=== PATIENT | female | born 1950 | race Caucasian/White ===

== ENCOUNTER 2020-08-30 06:23 | Day surgery (SDC) | payer OTHER ==
[2020-08-26 09:42] LABS: Absolute Lymphocytes (CBC) 1.2 K/uL (0.7-4.9); Basophils % 0.3 % (0-1.3); Lymphocytes % 23.8 % (15.3-44.8); MPV 7.8 fL (7.6-11.3); RBC Red Blood Cell Count 3.82 M/uL (3.86-4.86)
[2020-08-26 09:58] LABS: Potassium 3.9 mmol/L (3.5-5.1)
--- NOTE | 2020-08-26 10:02 | RAD REPORT ---
EXAM DESCRIPTION: RAD - Chest Pa And Lat (2 Views) - 08/26/2020 9:45 am CLINICAL HISTORY: PRE OP, pending knee surgery COMPARISON: None TECHNIQUE: Frontal and lateral views of the chest were obtained. FINDINGS: The lungs are clear. Heart size is normal and central vasculature is within normal limit s. No pleural effusion or pneumothorax seen. No acute bony finding noted. No aortic abnormality. IMPRESSION: No acute cardiopulmonary process.
--- OUTSIDE RECORDS SUMMARY | 2020-08-30 06:27 | XMS REPORT | Continuity of Care Document ---
:1950 Author Organization [facility] t Address [address] [place] [address] Dr. [address] [place] [address] Care Team Providers Name Role Phone Unavailable Unavailable Unavailable Problems This patient has no known problems. Allergies, Adverse Reactions, Alerts This patient has no known allergies or adverse reactions. Medications Ordered Filled Start Stop Current Ordering Indication Dosage Frequency Signature Comments Components Source Medication Medication Date Date Medication? Clinician (SIG) Name Name Amlodipine Amlodipine Yes Ariadna [address] [facility] Besylate Besylate [place] [facility] Donepezil Donepezil Yes Ariadna [address] [facility] HCl HCl [place] at bedtime [facility] Metoprolol Metoprolol Yes Ariadna [address] [facility] Succinate Succinate [place] [facility] Omeprazole Omeprazole Yes Ariadna [address] [facility] [place] [facility] Losartan Losartan Yes Ariadna [address] Potassium-H Pot[facility]-H [place] [facility] Nabumetone Nabumetone Yes Ariadna [address] [facility] [place] [facility] Sertraline Sertraline Yes Ariadna TAKE [address] [facility] HCl HCl [place] TABLET BY [facility] M[facility]TH [facility] EVERY DAY l [facility] Lovastatin Lovastatin Yes Ariadna [address] [facility] [place] with a [facility] meal [facility] Duloxetine Duloxetine Yes Ariadna [address] [facility] [address] HCl HCl [place] [facility] Immunizations Ordered Filled Immunization Date Status Comments Sourc e Immunization Name Name FLUZONE HIGH DOSE FLUZONE HIGH DOSE 2020-04-[address] [facility] - OVER 65 OVER 65 00:00:00 [facility] Pneumovax Pneumovax 2019-10-[address] [facility] - 00:00:00 [facility] FLUZONE HIGH DOSE FLUZONE HIGH DOSE 2018-10-[address] [facility] - OVER 65 OVER 65 00:00:00 [facility] Prevnar 13 Prevnar 13 2018-10-24 Com[facility] - -Pneumonia Vaccine -Pneumonia Vaccine 00:00:00 [facility] Procedures This patient has no known procedures. Encounters Start End Encounter Admission Attending Care Care Encounter Source Date/Time Date/Time Type Type Clinicians Facility Department ID 2020-08-16 2020-08-16 Outpatient [facility] [id number] [facility] 2020-08-15 2020-08-15 [facility] [id number] [facility] 2020-08-15 2020-08-15 Out[facility] [id number] [facility] 2020-08-14 2020-08-14 Outpatient [facility] [id number] [facility] 2020-07-23 2020-07-23 Outpatient [facility] [id number] [facility] 2020-07-16 2020-07-16 Outpatient [facility] [id number] [facility] 2020-07-08 2020-07-08 Outpatient [facility] [id number] [facility] 2020-04-25 2020-04-25 [facility] [id number] [facility] 10[facility]20:00 10:20:00 [facility] 2020-03-26 2020-03-26 [facility] [id number] [facility] 10[facility]00[facility]00 10:00:00 [facility] Clin[facility] 2020-02-15 2020-02-15 [facility] [id number] [address] 10[facility]00 10[facility]00:[facility] Out[facility] Clin[facility] 2020-02-14 2020-02-14 [facility] [id number] [address] 10:15:00 10:15:00 [facility] Outpat[facility] ent Clinics 2020-02-14 2020-02-14 [facility] [id number] [address] 10:14:00 10:14:00 [facility] Outpat[facility] ent Clinics 2020-01-25 2020-01-25 [facility] [id number] [address] 10[facility]15[facility]00 10:15[facility]00 [facility] 2019-12-06 2019-12-06 [facility] [id number] [facility] 13[facility]12:00 13:12:00 [facility] 2019-11-27 2019-11-27 [facility] [id number] [address] 16:23:00 16:23:00 [facility]pat[facility] Clinics 2019-10-24 2019-10-24 [facility] [id number] [address] 09:40:00 09:40:00 [facility] Outpat[facility] ent Clinics 2019-09-08 2019-09-08 [facility] [id number] [facility] 08[facility]00:00 08:00:00 [facility] 2019-09-04 2019-09-04 [facility] [id number] [address] 15:20:00 15:20:00 [facility] 2019-08-28 2019-08-28 [facility] [id number] [address] 11:00:00 11:00:00 [facility] Clin[facility] 2019-06-15 2019-06-15 [facility] [id number] [address] 10:00:00 10:00:00 [facility] 2019-05-09 2019-05-09 [facility] [id number] 10:30:00 10:30:00 [facility] 2019-04-27 2019-04-27 [facility] [id number] 09:10:00 09:10:00 [facility] ent Clinics 2019-04-25 2019-04-25 [facility] [id number] [address] 09:40:00 09:40:00 [facility] ent Clinics 2019-03-20 2019-03-20 [facility] [id number] 09[facility]00:00 09:00:00 [facility] ent Clinics 2019-02-06 2019-02-06 [facility] [id number] 15:15:00 15:15:00 [facility] ent Clinics 2018-11-04 2018-11-04 [facility] [id number] 14[facility]04:00 14:04:00 [facility] ent Clinics 2018-10-24 2018-10-24 [facility] [id number] [address] 09:00:00 09:00:00 [facility] Clinics 2018-04-25 2018-04-25 [facility] [id number] [address] 09:00:00 09:00:00 [facility] 2018-03-30 2018-03-30 [facility] [id number] [address] 10:30:00 10:30:00 [facility] Outpat[facility] ent Clinics 2018-03-15 2018-03-15 [facility] [id number] 10:00:00 10:00:00 [facility] Outpat[facility] ent Clinics 2018-02-11 2018-02-11 [facility] [id number] 10:30:00 10:30:00 [facility] Results This patient has no known results.
--- OUTSIDE RECORDS SUMMARY | 2020-08-30 06:28 | XMS REPORT ---
:1950 Author Organization [facility] Address [address] [facility] [address] [place] [address] Care Team Providers Name Role Phone Bairon Unavailable [phone] PROBLEMS Type Condition ICD9-CM [id number] Onset Condition SNOMED Code Notes Code Code Dates Status Problem Mild memory R41.3 Active 478357430 disturbance Problem Essential I10 Active 75266423 hypertension Problem Seasonal allergic J30.1 Active 21874695 rhinitis due to pollen Problem Hyperlipidemia E78.5 Active 85514484 Problem Gastric ulcer K25.9 Active 691860743 Problem Depression with F41.8 Active 506930521 anxiety Problem Arthritis M19.90 Active 8206803 ALLERGIES No Known Allergies ENCOUNTERS from 1950 to 2020-08-15 Encounter Location Date Provider Diagnosis [facility] [address] [address] IMMUNIZATIONS Vaccine Route Administration Date Status Hyalgan 20 mg Unknown Jul 16, 2020 Administered Hyalgan 20 mg Unknown Jul 23, 2020 Administered Bupivicaine [place] Unknown Sep 08, 2019 Administered Bupivicaine [place] Unknown January 25, 2020 Administered Pneumovax (PPSV23) IM Intramuscular October 24, 2019 Administered Betamethasone Sodium Phosphate Unknown May 09, 2019 A dministered Hyalgan 20 mg Unknown Jul 08, 2020 Administered Kenalog (Triamcinolone) Unknown May 09, 2019 Administ ered Bupivicaine [place] Unknown Jul 08, 2020 Administered Shingrix IM Intramuscular Apr 10, 2019 Administered Prevnar 13 -Pneumonia Vaccine IM Intramuscular October 24, 2018 A dministered FLUZONE HIGH DOSE OVER 65 IM Intramuscular Apr 25, 2020 Admin istered FLUZONE HIGH DOSE OVER 65 IM Intramuscular October 24, 2018 Admin istered LIDOCAINE HCL 10MG/ML Unknown May 09, 2019 Administer ed LIDOCAINE HCL 10MG/ML Unknown May 09, 2019 Administer ed Kenalog (Triamcinolone) Unknown Jul 08, 2020 Administ ered Kenalog (Triamcinolone) Unknown January 25, 2020 Administ ered Kenalog (Triamcinolone) Unknown Sep 08, 2019 Administ ered SOCIAL HISTORY Tobacco Use: Social History Observation Description Date Details (start date - stop date) Never Smoker Sex Assigned At : Social History Observation Description Sex Assigned At Unknown PHQ9 Question Answer Notes Little interest or pleasure in doing things Several days Feeling down, depressed, or hopeless Several days Trouble falling or staying asleep or sleeping too much More than half the days Feeling tired or having little energy Not at all Poor appetite or overeating Not at all Feeling bad about yourself, or that you are a failure, Sever al days or have let yourself or your family down Trouble concentrating on things, such as reading the More th an half the days newspaper or watching television Moving or speaking so slowly that other people could More th an half the days have noticed; or the opposite, being so fidgety or restless that you have been moving around a lot more than usual Total Score 9 Interpretation Mild Depression Thoughts that you would be better off or of Not at all hurting yourself in some way Alcohol Screen Question Answer Notes Did you have a drink containing alcohol in the past year? No Points 0 Interpretation Negative Tobacco Use/Smoking Question Answer Notes Are you a never smoker Additional Findings: Tobacco Non-User Current non-smoker REASON FOR REFERRAL No Information VITAL SIGNS No information MEDICATIONS Medication SIG (Take, Route, Notes Start Date End Date Status Frequency, Duration) Losartan Potassium-HCTZ 1 tablet Orally Once a Active 100-25 MG day for 90 Omeprazole 20 MG 1 capsule Orally Once a Active day for 90 Nabumetone 750 MG 1 tablet Orally Twice a Active day for 90 Amlodipine Besylate 5 MG 1 tablet Orally Once a Active day for 90 Duloxetine HCl 20 MG 1 capsule Orally Twice a Not-Taking day for 30 day(s) Sertraline HCl 100 MG TAKE 1 TABLET BY MOUTH Active EVERY DAY for 90 Donepezil HCl 5 MG 1 tablet at bedtime Not-Taking Orally Once a day for 30 Metoprolol Succinate ER 1 tablet Orally Once a Active 50 MG day for 90 Lovastatin 10 MG 1 tablet with a meal Active Orally Once a day for 90 Omeprazole Not-Taking PROCEDURES No Information RESULTS No Results REASON FOR VISIT Surgical Clearance MEDICAL (GENERAL) HISTORY Type Description Date Medical History Gastric ulcer Medical History Mild memory disturbance Medical History Hyperlipidemia Medical History Depression with anxiety Medical History Essential hypertension Medical History Arthritis Medical History Allergic rhinitis, unspecified seasonali ty, unspecified trigger Medical History Trigger ring finger of left hand Medical History Acute pain of left knee Medical History Pain, joint, hand, left Medical History Pain, joint, knee, left Medical History Trigger finger, left ring finger Medical History Rib deformity Surgical History TKR right 2011 Surgical History left ankle 2013 Surgical History crusted right wrist surgery 1995 Surgical History left wrist 2013 Surgical History left shoulder 2014 Surgical History back injections, nerve block 2016, 2017, 2018 Surgical History back ablation c4 & C5- Dr Resendiz 2019 Goals Section No Information Health Concerns No Information MEDICAL EQUIPMENT No Information MENTAL STATUS No Information FUNCTIONAL STATUS No Information ASSESSMENTS No Information PLAN OF TREATMENT Next Appt Details Provider Name:Ariadna Armstrong 2020-10-16 08 :15:00 AM, [address] [facility], [address], [place], [address], Provider Name:Ariadna Armstrong 2020-10-23 09 :40:00 AM, [address], [address], [place], [address], Insurance Providers Payer Name Payer Address Payer Insured Patient Coverage Cover age Phone Name Relationship to Start Date End Date Insured Cigna [address] [address] [phone] Brown self 2017 [facility] [id number] [employer] MEDICARE Attn Part B [id number] Derek Brown self 2016 [employer] Claims [phone] [facility] [address]
--- OUTSIDE RECORDS SUMMARY | 2020-08-30 06:28 | XMS REPORT ---
:1950 Author Organization [facility] Address [address], [facility] [address] [place] [address] Care Team Providers Name Role Phone Bairon Unavailable [phone] PROBLEMS Type Condition ICD9-CM [id number] Onset Condition SNOMED Code Notes Code Code Dates Status Problem Mild memory R41.3 Active 332606847 disturbance Problem Essential I10 Active 95280889 hypertension Problem Seasonal allergic J30.1 Active 81388533 rhinitis due to pollen Problem Hyperlipidemia E78.5 Active 32780587 Problem Gastric ulcer K25.9 Active 293582884 Problem Depression with F41.8 Active 874653933 anxiety Problem Arthritis M19.90 Active 5276359 ALLERGIES No Known Allergies ENCOUNTERS from 1950 to 2020-07-25 Encounter Location Date Provider Diagnosis [facility] [address] Jul, Boby Waddell Pain , joint, knee, left [facility] [address] M25.562 ; [place] [address] knee M17.12 and Other tear of medial meniscus of left knee as current injury, initial encounter S83.2 42A IMMUNIZATIONS Vaccine Route Administration Date Status Hyalgan 20 mg Unknown Jul 16, 2020 Administered Hyalgan 20 mg Unknown Jul 23, 2020 Administered Bupivicaine [place] Unknown Sep 08, 2019 Administered Bupivicaine [place] Unknown January 25, 2020 Administered Pneumovax (PPSV23) IM Intramuscular October 24, 2019 Administered Betamethasone Sodium Phosphate Unknown May 09, 2019 A dministered Hyalgan 20 mg Unknown Jul 08, 2020 Administered Kenalog (Triamcinolone) Unknown May 09, 2019 Administ ered Bupivicaine [place] Unknown Jul 08, 2020 Administered Shingrix IM [...] REASON FOR REFERRAL No Information VITAL SIGNS Height 61 in Jul, Weight 158 lbs Jul, Temperature 97.3 degrees Fahrenheit Jul, BMI 29.85 kg/m2 Jul, Blood pressure systolic 110 mm Hg Jul, Blood pressure diastolic 69 mm Hg Jul, MEDICATIONS Medication SIG (Take, Route, Notes Start Date End Date Status Frequency, Duration) Omeprazole 20 MG 1 capsule Orally Once a Active day for 90 Amlodipine Besylate 5 MG 1 tablet Orally Once a Active day for 90 Losartan Potassium-HCTZ 1 tablet Orally Once a Active 100-25 MG day for 90 Duloxetine HCl 20 MG 1 capsule Orally Twice a Not-Taking day for 30 day(s) Donepezil HCl 5 MG 1 tablet at bedtime Not-Taking Orally Once a day for 30 Lovastatin 10 MG 1 tablet with a meal Active Orally Once a day for 90 Sertraline HCl 100 MG TAKE 1 TABLET BY MOUTH Active EVERY DAY for 90 Nabumetone 750 MG 1 tablet Orally Twice a Active day for 90 Omeprazole Not-Taking Metoprolol Succinate ER 1 tablet Orally Once a Active 50 MG day for 90 PROCEDURES No Information RESULTS No Results REASON FOR VISIT LEFT KNEE #2 HYALGAN MEDICAL (GENERAL) HISTORY Type Description Date Medical [...] History Rib deformity Surgical History TKR right 2010 Surgical History left ankle 2013 Surgical History crusted right wrist surgery 1995 Surgical History left wrist 2013 Surgical History left shoulder 2014 Surgical History back injections, nerve block 2016, 2017, 2019 Surgical History back ablation c4 & C5- Dr Resendiz 2019 Goals Section No Information Health Concerns No Information MEDICAL EQUIPMENT No Information MENTAL STATUS No Information FUNCTIONAL STATUS No Information ASSESSMENTS Encounter Date Diagnosis Assessment Notes Treatment Notes Treatm ent Clinical Notes Jul, Pain, joint, knee, left (ICD-10 - M25.562) Jul, Primary osteoarthritis of left knee (ICD-10 - M17.12) Jul, Other tear of medial -reviewed MRI which meniscus of left demonstrated knee as current nondisplaced injury, initial degenerative encounter (ICD-10 - horizontal tear and S83.242A) knee osteoarthritis -continue with conservative treatment measures including corticosteroid injection -underwent her 2nd left knee hyalgan injection without complication -ice and rest the knee for 24 hour s -f/u in 1 week for her 3rd injection of the series Jul, Other -right knee feels better at this t amaury -will hold off on right knee xrays PLAN OF TREATMENT Treatment Notes Assessment Notes Clinical Notes Other tear of medial meniscus of -reviewed MRI which demonst rated left knee as current injury, nondisplaced degenerative horiz ontal initial encounter tear and knee osteoarthritis-continue with conservative treatment measures including corticosteroid injection-underwent her 2nd left knee hyalgan injection without complication-ice and rest the knee for 24 hours-f/u in 1 week for her 3rd injection of the series Next Appt Details 1 Week Reason: Provider Name:Ariadnalilia Armstrong, 2020-10-16 08 :15:00 AM, [address], [address], [place], [address], Provider Name:Ariadna Armstrong, 2020-10-23 09 :40:00 AM, [address], [address], [place], [address], Insurance Providers Payer Name Payer Address Payer Insured Patient Coverage Cover age Phone Name Relationship to Start Date End Date Insured MEDICARE Attn Part B [id number] Derek Brown self 2016 [employer] Claims [address] [facility] [address] Cign[employer] [address] [address] [phone] Derek Brown self 2017 [facility] [id number] [address] [employer]
--- OUTSIDE RECORDS SUMMARY | 2020-08-30 06:28 | XMS REPORT ---
:1950 Author Organization [facility] Address [address], [facility] [place] [address] Care Team Providers Name Role Phone Bairon Unavailable [phone] PROBLEMS Type Condition ICD9-CM [id number] Onset Condition SNOMED Code Notes Code Code Dates Status Problem Mild memory R41.3 Active 457024846 disturbance Problem Essential I10 Active 71001837 hypertension Problem Seasonal allergic J30.1 Active 32251348 rhinitis due to pollen Problem Hyperlipidemia E78.5 Active 27032758 Problem Gastric ulcer K25.9 Active 418690620 Problem Depression with F41.8 Active 179071699 anxiety Problem Arthritis M19.90 Active 6109599 ALLERGIES No Known Allergies ENCOUNTERS from 1950 to 2020-08-21 Encounter Location Date Provider Diagnosis [facility] [address] Aug, Boby white osteoarthritis [facility] [address] of left knee M17.12 ; [place], [place] Pain, joint, kn ee, left [address] M25.562 and Oth er tear of medial menis cus, current injury, left knee, subsequen t encounter S83.2 42D IMMUNIZATIONS Vaccine Route Administration Date Status Hyalgan 20 mg Unknown Jul 16, 2020 Administered Hyalgan 20 mg Unknown Jul 23, 2020 Administered Bupivicaine [place] Unknown Sep 08, 2019 Administered Bupivicaine [place] Unknown January 25, 2020 Administered Pneumovax (PPSV23) IM Intramuscular October 24, 2019 Administered Betamethasone Sodium Phosphate Unknown May 09, 2019 A dministered Hyalgan 20 mg Unknown Jul 08, 2020 Administered Kenalog (Triamcinolone) Unknown May 09, 2019 Administ luz Bupivicaine [place] Unknown Jul 08, 2020 Administered Shingrix IM [...] Kenalog (Triamcinolone) Unknown Jul 08, 2020 Administ erecollins Kenalog (Triamcinolone) Unknown January 25, 2020 Administ ered Kenalog (Triamcinolone) Unknown Sep 08, 2019 Administ luz SOCIAL HISTORY Tobacco Use: Social History Observation [...] No Information VITAL SIGNS Height 61 in Aug, Weight 158 lbs Aug, Temperature 97.3 degrees Fahrenheit Aug, BMI 29.85 kg/m2 Aug, Blood pressure systolic 122 mm Hg Aug, Blood pressure diastolic 78 mm Hg Aug, MEDICATIONS Medication SIG (Take, Route, Notes Start Date End Date Status Frequency, Duration) Donepezil HCl 5 MG 1 tablet at bedtime Not-Taking Orally Once a day for 30 Omeprazole 20 MG 1 capsule Orally Once a Active day for 90 Nabumetone 750 MG 1 tablet Orally Twice a Active day for 90 Duloxetine HCl 20 MG 1 capsule Orally Twice a Not-Taking day for 30 day(s) Metoprolol Succinate ER 1 tablet Orally Once a Active 50 MG day for 90 Omeprazole Not-Taking Lovastatin 10 MG 1 tablet with a meal Active Orally Once a day for 90 Losartan Potassium-HCTZ 1 tablet Orally Once a Active 100-25 MG day for 90 Sertraline HCl 100 MG TAKE 1 TABLET BY MOUTH Active EVERY DAY for 90 Amlodipine Besylate 5 MG 1 tablet Orally Once a Active day for 90 PROCEDURES No Information RESULTS No Results REASON FOR VISIT FU LT KNEE MEDICAL (GENERAL) HISTORY Type Description Date Medical [...] left wrist 2013 Surgical History left shoulder 2015 Surgical History back injections, nerve block 2016, 2017, 2019 Surgical History back ablation c4 & C5- Dr Resendiz 2019 Goals Section No Information Health Concerns No Information MEDICAL EQUIPMENT No Information MENTAL STATUS No Information FUNCTIONAL STATUS No Information ASSESSMENTS Encounter Date Diagnosis Assessment Notes Treatment Notes Treatm ent Clinical Notes Aug, Primary -reviewed MRI which osteoarthritis of demonstrated left knee (ICD-10 - nondisplaced M17.12) degenerative horizontal tear and knee osteoarthritis -patient has failed conservative treatment measur es -given continued pain, recommend left knee arthroscopic partial medial meniscectomy and all indidcated procedures -discussed with the patient risks and benefits associated with the procedure at length as well as postoperative rehabilitation and she expressed understanding -f/u 1 week pos top -discussed repeat injections in future if her pain did not completely resolve with the knee arthroscopy Aug, Pain, joint, knee, left (ICD-10 - M25.562) Aug, Other tear of medial -reviewed MRI which meniscus, current demonstrated injury, left knee, nondisplaced subsequent encounter degenerative (ICD-10 - S83.242D) horizontal tear and knee osteoarthritis -patient has failed conservative treatment measur es -given continued pain, recommend left knee arthroscopic partial medial meniscectomy and all indidcated procedures -discussed with the patient risks and benefits associated with the procedure at length as well as postoperative rehabilitation and she expressed understanding -f/u 1 week postop PLAN OF TREATMENT Medication Medication Name Sig Start Date Stop Date Metoprolol Succinate ER 50 MG 1 tablet Orally Once a day for 90 Sertraline HCl 100 MG TAKE 1 TABLET BY MOUTH EVERY DAY for 90 Treatment Notes Assessment Notes Clinical Notes Primary osteoarthritis of left knee -reviewed MRI which demo nstrated nondisplaced degenerative horizontal tear and knee osteoarthritis-patient has failed conservative treatment measures-given continued pain, recommend left knee arthroscopic partial medial meniscectomy and all indidcated procedures-discussed with the patient risks and benefits associated with the procedure at length as well as postoperative rehabilitation and she expressed understanding-f/u 1 week postop-discussed repeat injections in future if her pain did not completely resolve with the knee arthroscopy Other tear of medial meniscus, -reviewed MRI which demonstra shruthi current injury, left knee, nondisplaced degenerative subsequent encounter horizontal tear and knee osteoarthritis-patient has failed conservative treatment measures-given continued pain, recommend left knee arthroscopic partial medial meniscectomy and all indidcated procedures-discussed with the patient risks and benefits associated with the procedure at length as well as postoperative rehabilitation and she expressed understanding-f/u 1 week postop Next Appt Details f/u 1 week postop Reason: Provider Name:Boby Waddell, 2020-09-05 1 0:00:00 AM, [address], [address], [place], [address], Provider Name:Ariadna Armstrong, 2020-10-16 08 :15:00 AM, [address], [address], [place], [address], Provider Name:Ariadna Armstrong, 2020-10-23 09 :40:00 AM, [address], [address], [place], [address], Insurance Providers Payer Name Payer Address Payer Insured Patient Coverage Cover age Phone Name Relationship to Start Date End Date Insured MEDICARE Attn Part B [id number] KevinDerek self 2016 [employer] Claims [address] [facility] [address] Cigna [address] [address] [phone] Derek Brown self 2017 Supplement [facility] [id number] [address] Solution
--- OUTSIDE RECORDS SUMMARY | 2020-08-30 06:28 | XMS REPORT ---
:1950 Author Organization [facility] Address [address], [facility] 1 [place] [address] Care Team Providers Name Role Phone Bairon Unavailable [phone] PROBLEMS Type Condition ICD9-CM [id number] Onset Condition SNOMED Code Notes Code Code Dates Status Problem Mild memory R41.3 Active 032203168 disturbance Problem Essential I10 Active 25907344 hypertension Problem Seasonal allergic J30.1 Active 42182448 rhinitis due to pollen Problem Hyperlipidemia E78.5 Active 81142732 Problem Gastric ulcer K25.9 Active 844950206 Problem Depression with F41.8 Active 099677613 anxiety Problem Arthritis M19.90 Active 7968688 ALLERGIES No Known Allergies ENCOUNTERS from 1950 to 2020-07-09 Encounter Location Date Provider Diagnosis [facility] [address] Jun, 2020 Boby Waddell Pain , joint, knee, [facility] 1 [facility] M25.56 1 ; [place], [place], [place], [place] [address] M25.562 ; Prima ry osteoarthritis of left knee M17.12 and Other tear of medial meniscus of left knee as current injury, initial encounter S83.2 42A IMMUNIZATIONS Vaccine Route Administration Date Status Bupivicaine [place] Unknown Sep 08, 2019 Administered Bupivicaine [place] Unknown January 25, 2020 Administered Bupivicaine [place] Unknown Jul 08, 2020 Administered Shingrix IM Intramuscular Apr 10, 2019 Administered Pneumovax (PPSV23) IM Intramuscular October 24, 2019 Administered Betamethasone Sodium Phosphate Unknown May 09, 2019 A dministered Hyalgan 20 mg Unknown Jul 08, 2020 Administered Kenalog (Triamcinolone) Unknown May 09, 2019 Administ luz Prevnar 13 -Pneumonia Vaccine IM Intramuscular October 24, 2018 A dministered FLUZONE HIGH DOSE OVER 65 IM Intramuscular Apr 25, 2020 Admin istered FLUZONE HIGH DOSE OVER 65 IM Intramuscular October 24, 2018 Admin istered LIDOCAINE HCL 10MG/ML Unknown May 09, 2019 Administer ed LIDOCAINE HCL 10MG/ML Unknown May 09, 2019 Administer ed Kenalog (Triamcinolone) Unknown Jul 08, 2020 Administ luz Kenalog (Triamcinolone) Unknown January 25, 2020 Administ erecollins Kenalog (Triamcinolone) Unknown Sep 08, 2019 Administ [...] No Information VITAL SIGNS Height 61 in Jun, Weight 158.2 lbs Jun, Temperature 97.3 degrees Fahrenheit Jun, BMI 29.89 kg/m2 Jun, Blood pressure systolic 114 mm Hg Jun, Blood pressure diastolic 80 mm Hg Jun, MEDICATIONS Medication SIG (Take, Route, Notes Start Date End Date Status Frequency, Duration) Amlodipine Besylate 5 MG 1 tablet Orally Once a Active day for 90 Nabumetone 750 MG 1 tablet Orally Twice a Active day for 90 Duloxetine HCl 20 MG 1 capsule Orally Twice a Not-Taking day for 30 day(s) Omeprazole Not-Taking Lovastatin 10 MG 1 tablet with a meal Active Orally Once a day for 90 Donepezil HCl 5 MG 1 tablet at bedtime Not-Taking Orally Once a day for 30 Losartan Potassium-HCTZ 1 tablet Orally Once a Active 100-25 MG day for 90 Omeprazole 20 MG 1 capsule Orally Once a Active day for 90 Metoprolol Succinate ER 1 tablet Orally Once a Active 50 MG day for 90 Sertraline HCl 100 MG TAKE 1 TABLET BY MOUTH Active EVERY DAY for 90 PROCEDURES No Information RESULTS No Results REASON FOR VISIT F/U NEW INJURY: LT KNEE PAIN- XRAY MEDICAL (GENERAL) HISTORY Type Description Date Medical [...] Notes Treatment Notes Treatm ent Clinical Notes Jun, Pain, joint, knee, right (ICD-10 - M25.561) Jun, Pain, joint, knee, left (ICD-10 - M25.562) Jun, Primary osteoarthritis of left knee (ICD-10 - M17.12) Jun, Other tear of medial -reviewed MRI which meniscus of left demonstrated knee as current nondisplaced injury, initial degenerative encounter (ICD-10 - horizontal tear and S83.242A) knee osteoarthri tis -continue with conservative treatment measures including corticosteroid injection -underwent left knee kenalog/hyalgan injection without complication -ice and rest the knee for 24 hour s -f/u in 1 week for her 2nd injection of the series Jun, Other -f/u with xrays of the right knee as she hit the right knee on a trailer with some pain anteriorly PLAN OF TREATMENT Treatment Notes Assessment Notes Clinical Notes Other tear of medial meniscus of -reviewed MRI which demonst rated left knee as current injury, nondisplaced degenerative horiz ontal initial encounter tear and knee osteoarthritis-continue with conservative treatment measures including corticosteroid injection-underwent left knee kenalog/hyalgan injection without complication-ice and rest the knee for 24 hours-f/u in 1 week for her 2nd injection of the series Treatment Notes Test Name Order Date X-RAY EXAM KNEE 1 OR 2 VIEWS ([id number]) 2020-07-09 X-RAY EXAM KNEE STANDING VIEW ([id number]) 2020-07-09 Next Appt Details 1 Week Reason: Provider Name:Boby Waddell 2020-07-16 0 9:00:00 AM, [address], [address], [place], [address], Provider Name:Boby Waddell 2020-07-23 1 1:00:00 AM, [address], [place], [address], Provider Name:Ariadna Armstrong, 2020-10-16 08 :15:00 AM, [address], [address], [place], [address], Provider Name:Ariadna Armstrong, 2020-10-23 09 :40:00 AM, [address], [address], [place], [address], Insurance Providers Payer Name Payer Address Payer Insured Patient Coverage Cover age Phone Name Relationship to Start Date End Date Insured Cigna [address] [address] [phone] Derek Brown 2017 Supplement [facility] [id number] MEDICARE Attn Part B [id number] Derek Brown 2016 [employer] Claims [address] [facility] [phone]
--- OUTSIDE RECORDS SUMMARY | 2020-08-30 06:28 | XMS REPORT ---
:1950 Author Organization [facility] Address [address] [facility] [address] [place] [address] Care Team Providers Name Role Phone Bairon Unavailable [phone] PROBLEMS Type Condition ICD9-CM [id number] Onset Condition SNOMED Code Notes Code Code Dates Status Problem Mild memory R41.3 Active 666431793 disturbance Problem Essential I10 Active 17356934 hypertension Problem Seasonal allergic J30.1 Active 68448543 rhinitis due to pollen Problem Hyperlipidemia E78.5 Active 13784215 Problem Gastric ulcer K25.9 Active 367740041 Problem Depression with F41.8 Active 180764916 anxiety Problem Arthritis M19.90 Active 9008292 ALLERGIES No Known Allergies ENCOUNTERS from 1950 to 2020-08-15 Encounter Location Date Provider Diagnosis [facility] [address] Aug[facility] [place] [address] IMMUNIZATIONS Vaccine Route Administration Date Status Hyalgan 20 mg Unknown Jul 16, 2020 Administered Hyalgan 20 mg Unknown Jul 23, 2020 Administered Bupivicaine [place] Unknown Sep 08, 2019 Administered Bupivicaine [place] Unknown January 25, 2020 Administered Pneumovax (PPSV23) IM Intramuscular October 24, 2019 Administered Betamethasone Sodium Phosphate Unknown May 09, 2019 A dministered Hyalgan 20 mg Unknown Jul 08, 2020 Administered Kenalog (Triamcinolone) Unknown May 09, 2019 Administ ered Bupivicaine [place] Unknown Jul 08, 2020 Administered Shingrix IM [...] Information RESULTS No Results REASON FOR VISIT PCP CLEARANCE REQUEST MEDICAL (GENERAL) HISTORY Type Description Date Medical [...] OF TREATMENT Next Appt Details Provider Name:Ariadna Armstrong, 2020-10-16 08 :15:00 AM, [address] [facility], [address], [place], [address], Provider Name:Ariadna Armstrong 2020-10-23 09 :40:00 AM, [address] [facility], [address], [place], [address], Insurance Providers Payer Name Payer Address Payer Insured Patient Coverage Cover age Phone Name Relationship to Start Date End Date Insured Cigna [address] [address] [phone] Derek Brown self 2017 [facility] [id number] Solution MEDICARE Attn Part B [id number] Derek Brown self 2016 [employer] Claims [address] [facility] [address]
--- OUTSIDE RECORDS SUMMARY | 2020-08-30 06:28 | XMS REPORT ---
:1950 Author Organization [facility] Address [address] [facility] [address] [place] [address] Care Team Providers Name Role Phone Bairon Unavailable [phone] PROBLEMS Type Condition ICD9-CM [id number] Onset Condition SNOMED Code Notes Code Code Dates Status Problem Mild memory R41.3 Active 383953753 disturbance Problem Essential I10 Active 10344269 hypertension Problem Seasonal allergic J30.1 Active 81028860 rhinitis due to pollen Problem Hyperlipidemia E78.5 Active 49520292 Problem Gastric ulcer K25.9 Active 502116450 Problem Depression with F41.8 Active 082370158 anxiety Problem Arthritis M19.90 Active 6491888 ALLERGIES No Known Allergies ENCOUNTERS from 1950 to 2020-08-16 Encounter Location Date Provider Diagnosis [facility] [address] Aug, [facility] [place] [address] IMMUNIZATIONS Vaccine Route Administration Date Status Hyalgan 20 mg Unknown Jul 16, 2020 Administered Hyalgan 20 mg Unknown Jul 23, 2020 Administered Bupivicaine [place] Unknown Sep 08, 2019 Administered Bupivicaine [place] Unknown January 25, 2020 Administered Pneumovax (PPSV23) IM Intramuscular October 24, 2019 Administered Betamethasone Sodium Phosphate Unknown May 09, 2019 A dministered Hyalgan 20 mg Unknown Jul 08, 2020 Administered Kenalog (Triamcinolone) Unknown May 09, 2019 Administ ered Bupivicaine [place] Unknown Jul 08, 2020 Administered Shingrix IM [...] Information RESULTS No Results REASON FOR VISIT pro op notified MEDICAL (GENERAL) HISTORY Type Description Date Medical [...] 2013 Surgical History crusted right wrist surgery 1996 Surgical History left wrist 2013 Surgical History left shoulder 2015 Surgical History back injections, nerve block 2016, 2017, 2018 Surgical History back ablation c4 & C5- Dr Resendiz 2019 Goals Section No Information Health Concerns No Information MEDICAL EQUIPMENT No Information MENTAL STATUS No Information FUNCTIONAL STATUS No Information ASSESSMENTS No Information PLAN OF TREATMENT Medication Medication Name Sig Start Date Stop Date Metoprolol Succinate ER 50 MG 1 tablet Orally Once a day for 90 Sertraline HCl 100 MG TAKE 1 TABLET BY MOUTH EVERY DAY for 90 Next Appt Details Provider Name:Ariadna Armstrong 2020-10-16 08 :15:00 AM, [address], [address], [place], [address], Provider Name:Ariadna Armstrong 2020-10-23 09 :40:00 AM, [address] [facility], [address], [place], [address], Insurance Providers Payer Name Payer Address Payer Insured Patient Coverage Cover age Phone Name Relationship to Start Date End Date Insured Cigna [address] [address] [phone] Derek Brown self 2017 [facility] [id number] [id number] Solution MEDICARE Attn Part B [id number] Derek Brown self 2016 [employer] Claims [address] [facility] [address]
--- OUTSIDE RECORDS SUMMARY | 2020-08-30 06:28 | XMS REPORT ---
:1950 Author Organization [facility] Address [address], [address] [place] [address] Care Team Providers Name Role Phone Bairon Unavailable [phone] PROBLEMS Type Condition ICD9-CM [id number] Onset Condition SNOMED Code Notes Code Code Dates Status Problem Mild memory R41.3 Active 173572375 disturbance Problem Essential I10 Active 58850370 hypertension Problem Seasonal allergic J30.1 Active 89821069 rhinitis due to pollen Problem Hyperlipidemia E78.5 Active 08805983 Problem Gastric ulcer K25.9 Active 068533550 Problem Depression with F41.8 Active 560266399 anxiety Problem Arthritis M19.90 Active 3354141 ALLERGIES No Known Allergies ENCOUNTERS from 1950 to 2020-08-05 Encounter Location Date Provider Diagnosis [facility] [address] Jul, Boby white osteoarthritis [facility] [address] of left knee M17.12 ; [place], [place] Pain, joint, kn ee, left [address] M25.562 and Oth er tear of medial menis cus of left knee as cu rrent injury, initial encounter S83.2 42A IMMUNIZATIONS Vaccine Route Administration Date Status Hyalgan 20 mg Unknown Jul 16, 2020 Administered Hyalgan 20 mg Unknown Jul 23, 2020 Administered Bupivicaine [place] Unknown Sep 08, 2019 Administered Bupivicaine [place] Unknown January 25, 2020 Administered Pneumovax (PPSV23) IM Intramuscular October 24, 2019 Administered Betamethasone Sodium Phosphate Unknown May 09, 2019 A dministered Hyalgan 20 mg Unknown Jul 08, 2020 Administered Kenalog (Triamcinolone) Unknown May 09, 2019 Administ ered Bupivicaine [place] Unknown Jul 08, 2020 Administered Shingrix IM [...] 61 in Jul, Weight 158 lbs Jul, BMI 29.85 kg/m2 Jul, Blood pressure systolic 120 mm Hg Jul, Blood pressure diastolic 68 mm Hg Jul, MEDICATIONS Medication SIG (Take, [...] No Results REASON FOR VISIT LEFT KNEE #3 HYALGAN MEDICAL (GENERAL) HISTORY Type Description Date [...] Treatment Notes Treatm ent Clinical Notes Jul, Primary -reviewed MRI which osteoarthritis of demonstrated left knee (ICD-10 - nondisplaced M17.12) degenerative horizontal tear and knee osteoarthritis -continue with conservative treatment measur es -underwent her 3rd left knee hyalgan injection without complication -ice and rest the knee for 24 hour s -f/u as needed Jul, Pain, joint, knee, left (ICD-10 - M25.562) Jul, Other tear of medial -reviewed MRI which meniscus of left demonstrated knee as current nondisplaced injury, initial degenerative encounter (ICD-10 - horizontal tear and S83.242A) knee osteoarthritis -continue with conservative treatment measur es -underwent her 3rd left knee hyalgan injection without complication -ice and rest the knee for 24 hour s -f/u as needed PLAN OF TREATMENT Treatment Notes Assessment Notes Clinical Notes Primary osteoarthritis of left knee -reviewed MRI which demo nstrated nondisplaced degenerative horizontal tear and knee osteoarthritis-continue with conservative treatment measures-underwent her 3rd left knee hyalgan injection without complication-ice and rest the knee for 24 hours-f/u as needed Other tear of medial meniscus of -reviewed MRI which demonst rated left knee as current injury, initial nondisplaced degenerati ve encounter horizontal tear and knee osteoarthritis-continue with conservative treatment measures-underwent her 3rd left knee hyalgan injection without complication-ice and rest the knee for 24 hours-f/u as needed Next Appt Details prn Reason: Provider Name:Ariadna Armstrong, 2020-10-16 08 :15:00 AM, [address], [address], [place], [address], Provider Name:Ariadna Armstrong, 2020-10-23 09 :40:00 AM, [address], [address], [place], [address], Insurance Providers Payer Name Payer Address Payer Insured Patient Coverage Cover age Phone Name Relationship to Start Date End Date Insured MEDICARE Attn Part B [id number] Derek Brown self 2016 [employer] Claims [address] [facility] [address] Cigna [address] [address] [phone] Derek Brown self 2017 [facility] [id number] [address] Solution
[2020-08-30] MEDS: Ringers Lactate 1,000 ML IV ONE (07:15)
[2020-08-30] MEDS ORDERED: BUPIVACAINE 0.25% PF 30 ML VIAL ONE (07:19)
[2020-08-30] MEDS: CEFAZOLIN/SWI 1gm 1 GM/10 ML SYR ONE ×2 (07:25→07:49)
[2020-08-30] MEDS ORDERED: FENTANYL CITR 100 MCG/2 ML ONE (07:27)
[2020-08-30] MEDS ORDERED: propofoL 200 MG/20 ML VIAL IV ONE (07:27)
[2020-08-30] MEDS ORDERED: MIDAZOLAM HCL 2 MG/2 ML INJ ONE (07:27)
[2020-08-30] MEDS ORDERED: LIDOCAINE 2% MPF 5 ML VIAL ONE (07:27)
[2020-08-30] MEDS ORDERED: dexAMETHasone 10 MG/ML VIAL ONE (07:43)
[2020-08-30] MEDS ORDERED: ONDANSETRON 4 MG/2 ML VIAL ONE (07:43)
[2020-08-30] MEDS ORDERED: KETOROLAC 30 MG/ML INJ ONE (07:55)
[2020-08-30] MEDS ORDERED: EPHEDRINE SULF 50 MG/ML VIAL ONE (07:58)
--- NOTE | 2020-08-30 08:55 | P.BOP ---
Preoperative diagnosis: left knee medial meniscus tear Postoperative diagnosis: same, left knee lateral meniscus tear Primary procedure: left knee arthroscopic partial medial meniscectomy Secondary procedure: left knee arthroscopic partial lateral meniscectomy Clinical Unit Educator: NONE,NONE Estimated blood loss: <5 cc Specimen: none Findings: see dictation Anesthesia: General Complications: None Implants: none Fluids & blood products: per anesthesia record; TT: 38 mins @ 300 mmHg Transferred to: Recovery Room Condition: Good
[2020-08-30] MEDS: HYDROMORPHONE HCL 1 MG/ML INJ ONE ×2 (09:05→09:10)
[2020-08-30] MEDS ORDERED: Ringers Lactate 1,000 ML IV ONE (09:11)
[2020-08-30] MEDS ORDERED: HYDROCODONE/APAP 5/325 MG TAB PO ONE (09:55)
[2020-08-30 11:01] VITALS: TEMP 97.8
[2020-08-30 11:04] VITALS: BP 143/86; O2SAT 97
--- NOTE | 2020-08-31 00:41 | OP ---
Date of Procedure: 08/30/2020 Surgeon: Boby Waddell MD Preoperative Diagnosis: Left knee medial meniscus tear. Postoperative Diagnoses: 1.Left knee medial meniscus tear. 2.Left knee lateral meniscus tear. Procedure Performed: 1.Left knee arthroscopic partial medial meniscectomy. 2.Left knee arthroscopic partial lateral meniscectomy. Anesthesia: General LMA. Fluids: Per Anesthesia record. Estimated Blood Loss: Less than 10 cc. Tourniquet Time: 38 minutes at 300 mmHg. Complications: None. Indication For Procedure: Ms. Brown is a 70-year-old female who presented to my clinic with signs and symptoms consistent with left knee osteoarthritis as well as medial meniscus tear. The patient unde rwent MRI, which demonstrated a complex medial meniscus tear. She failed conservative treatment carlitos ures including working with steroid injections. I discussed with the patient at length risks and jacklyn efits associated with operative and nonoperative treatment. She expressed understanding and elected to proceed with operative treatment. Description Of Procedure: After informed consent was obtained, the patient was identified in the pre operative holding area. The left lower extremity was marked. The patient was then brought back to [facility] operating room, transferred to the operating table in a supine fashion and placed under general LM A anesthesia. The left lower extremity was then prepped and draped in usual sterile fashion. A time -out was initiated. The correct patient and procedure were confirmed and identified. The patient di d receive preoperative prophylactic antibiotics. The left foot was then exsanguinated using an Esmar ch. Then, the tourniquet was inflated at 300 mmHg. Standard anteromedial and anterolateral portals were created. The arthroscope was brought in via the anterolateral portal and diagnostic arthroscopy was performed. The arthroscope was first brought into the patellofemoral joint where the patient wa s noted to have grade 2 chondromalacia changes noted on the trochlear groove. The arthroscope was th en brought into both medial and lateral gutters where there was noted to be some chondral loose perez s that were approximately 6 mm in length and 4 mm in width. They were then removed using an arth[employer]OtherDrive opic shaver. Under direct visualization, the arthroscope was then brought to the medial compartment where the patient was noted to have a complex tear of the medial meniscus body. A partial medial men iscectomy was performed using a meniscal biter as well as arthroscopic shaver to smooth meniscal bord ers. A 40% of the medial meniscus body was debrided using the arthroscopic shaver to smooth meniscal borders. Next, the arthroscope was brought into the intercondylar notch. The patient was noted to have an intact ACL and PCL. The arthroscope was then brought into the lateral compartment. The toy ent was noted to have significant sprain and tear of the lateral meniscus. An arthroscopic shaver wa s then used to perform a partial medial meniscectomy to smooth meniscal borders. There was no signif icant chondromalacia changes noted between the lateral compartment. In medial compartment, there was noted to be some grade 2 and 3 chondromalacia changes at the medial femoral condyle. The arthroscop e was then brought back to patellofemoral joint. The arthroscopic shaver was then brought in to brie ve any remaining condylar fragments. Arthroscopic instruments were then removed without complication . The wounds were then irrigated thoroughly with normal saline. Portals were then approximated usin g a 3-0 Monocryl. Sterile dressings were applied. Tourniquet was let down. The patient was then aw akened and transferred to PACU in stable condition. Postoperative Plan: The patient will be weightbearing as tolerated. She will follow up in 1 week fo r wound check and range of motion check. She will follow up with physical therapy and follow up with patellofemoral protocols. ALEJANDRO/JANELLEL Voice ID: [id number] Report ID: [id number]
== END 2020-08-30 10:55 | disposition home or self-care (01) ==
LOC: OR 06:23
PROVIDERS: ATTEND Orthopaedic Surgery Sports Medicine
PROC: 0SBD4ZZ Excision of Left Knee Joint, Percutaneous Endoscopic Approach (ICD-10-PCS; principal; 2020-08-30 07:30)
DX: S83.242D Other tear of medial meniscus, current injury, left knee, subsequent encounter (principal); M17.12 Unilateral primary osteoarthritis, left knee; I10 Essential (primary) hypertension; E78.5 Hyperlipidemia, unspecified; F41.8 Other specified anxiety disorders; Z20.822 Contact with and (suspected) exposure to COVID-19
CPT/HCPCS: 93005; 85025; 80048; 36415; 85610; 85730; 71046; 29881; U0002; J2704; J2250; J3010; J1100; J1170; J0690; J7120 ×2; J2405

== ENCOUNTER 2022-09-29 09:27 | Day surgery (SDC) | payer OTHER ==
[2022-09-23 15:20] LABS: Absolute Lymphocytes (CBC) 1.7 K/uL (0.7-4.9); Hematocrit 31.5 % (36.0-45.0); Lymphocytes % 23.9 % (15.3-44.8); MCV 81.5 fL (80-100); MPV 7.9 fL (7.6-11.3); RBC Red Blood Cell Count 3.87 M/uL (3.86-4.86)
[2022-09-23 15:28] LABS: Protime INR 0.97
[2022-09-23 15:36] LABS: Potassium 3.7 mmol/L (3.5-5.1)
[2022-09-23 16:06] LABS: Urine Bacteria <20 /HPF (<20); Urine Bilirubin NEGATIVE (Negative); Urine Blood Negative (Negative); Urine Clarity Turbid (Clear); Urine Color Yellow (Yellow); Urine Glucose NEGATIVE (Negative); Urine Protein TRACE (Negative); Urine Urobilinogen 1+ (Normal); Urine pH 6.5 (5.0-7.0)
[2022-09-28 13:14] LABS: SARS-CoV-2 Antigen Rapid Res Negative (Negative)
[2022-09-29] MEDS ORDERED: Ringers Lactate 1,000 ML IV ONE ×2 (10:45→14:53)
[2022-09-29] MEDS ORDERED: CELECOXIB 100 MG CAPSULE ONE (10:52)
[2022-09-29] MEDS ORDERED: ACETAMINOPHEN 500 MG TAB ONE (10:53)
[2022-09-29] MEDS ORDERED: CEFAZOLIN SODIUM 1 GM/VIAL ONE (11:14)
[2022-09-29] MEDS ORDERED: NA CHLORIDE 0.9% 100 ML ONE (11:15)
[2022-09-29] MEDS ORDERED: LIDOCAINE 1% W/EPI 1:100,000 50 ML MDV ONE (11:15)
[2022-09-29] MEDS: BUPIVACAINE 0.25% PF 30 ML VIAL ONE ×3 (11:31→12:50)
[2022-09-29] MEDS: CEFAZOLIN SODIUM 2 GM/VIAL ONE ×2 (11:31→12:08)
[2022-09-29] MEDS ORDERED: ROCURONIUM 50 MG/5 ML VIAL IV ONE (11:53)
[2022-09-29] MEDS ORDERED: propofoL 200 MG/20 ML VIAL IV ONE (11:53)
[2022-09-29] MEDS ORDERED: LIDOCAINE 2% MPF 5 ML VIAL ONE (11:54)
[2022-09-29] MEDS ORDERED: FENTANYL CITR 250 MCG/5 ML ONE (11:55)
[2022-09-29] MEDS ORDERED: MIDAZOLAM HCL 2 MG/2 ML INJ ONE (11:55)
[2022-09-29] MEDS ORDERED: GLYCOPYRROLATE 0.2 MG/ML SYR ONE ×2 (11:56)
[2022-09-29] MEDS ORDERED: NEOSTIGMINE 1 MG/ML -10 ML VIAL ONE (11:58)
[2022-09-29] MEDS ORDERED: ONDANSETRON 4 MG/2 ML VIAL ONE (11:58)
[2022-09-29] MEDS ORDERED: BUPIVACAINE 0.25% PF 30 ML VIAL ONE (12:18)
[2022-09-29] MEDS ORDERED: dexAMETHasone 4 MG/ML VIAL ONE (13:06)
[2022-09-29] MEDS ORDERED: dexAMETHasone 10 MG/ML VIAL ONE (13:08)
[2022-09-29] MEDS: VASOPRESSIN 20 UNIT/ML VIAL ONE ×2 (13:18→15:20)
[2022-09-29] MEDS ORDERED: NS 0.9% VIAL 10 ML ONE (13:53)
[2022-09-29] MEDS ORDERED: Phenylephrine HCl 10 MG/ML 1 ML VIAL ONE (13:55)
[2022-09-29] MEDS ORDERED: NS 0.9% VIAL 20 ML ONE (13:58)
[2022-09-29] MEDS ORDERED: VECURONIUM 10 MG/VIAL IV ONE (13:58)
[2022-09-29] MEDS ORDERED: SUGAMMADEX SODIUM 200 MG/2 ML VIAL IV ONE (16:01)
[2022-09-29] MEDS ORDERED: MEPERIDINE HCL 25 MG/ML SYR IM PRN (16:22)
[2022-09-29] MEDS ORDERED: IBUPROFEN 200 MG TAB PO PRN (16:22)
[2022-09-29] MEDS ORDERED: HYDROCODONE/APAP 5/325 MG TAB PO PRN (16:22)
[2022-09-29] MEDS ORDERED: PROMETHAZINE INJ 25 MG/ML AMP IV PRN (16:22)
--- NOTE | 2022-09-29 16:30 | P.BOP ---
Preoperative diagnosis: stg2 Pelvic organ prolapse,KAYLA,Left ovarian cyst, dilated endometrial canal Postoperative diagnosis: same Primary procedure: TLH BSO, pelvic washings, USLS colpopexy, TO MUS (SIS), cysto Picker/Puller: Marla Gruber (Goretex x2, PDS x2) Estimated blood loss: 50 Specimen: uterus tubes ovaries, washings Findings: -1/+2/-1/4.5/mod/7/-2/-2/-3, varicosities lissette mesosalpinges,cecal adhesions Anesthesia: General Complications: None Drain(s): Urinary catheter Implants: Solyx Fluids & blood products: UO 150, 1500 LR Transferred to: Recovery Room Condition: Good
[2022-09-29] MEDS ORDERED: HYDROCODONE/APAP 5/325 MG TAB ONE (18:01)
[2022-09-29 18:07] VITALS: BP 110/65; TEMP 98.1; O2SAT 95
[2022-09-30] MEDS ORDERED: DULOXETINE 20 MG CAP PO SCH (09:00)
[2022-09-30] MEDS ORDERED: AMLODIPINE 5 MG TAB PO SCH (09:00)
[2022-09-30] MEDS ORDERED: VALSARTAN PO SCH (09:00)
[2022-09-30] MEDS ORDERED: NABUMETONE 750 MG PO SCH (09:00)
[2022-09-30] MEDS ORDERED: HOME MED 1 EA UNK (Omeprazole [Omeprazole] 20 MG Capsule.Dr) PO SCH (09:00)
[2022-09-30] MEDS ORDERED: SERTRALINE HCL 100 MG TAB PO SCH (09:00)
[2022-09-30] MEDS ORDERED: HYDROCHLOROTHIAZIDE PO SCH (09:00)
[2022-09-30] MEDS ORDERED: HOME MED 1 EA UNK (Lovastatin [Lovastatin] 10 MG Tablet) PO SCH (09:00)
[2022-09-30] MEDS ORDERED: HOME MED 1 EA UNK (Metoprolol Tartrate [Lopressor] 100 MG Tablet) PO SCH (09:00)
== END 2022-09-29 20:18 | disposition home or self-care (01) ==
LOC: OR 09:27
PROVIDERS: ATTEND Obstetrics & Gynecology
PROC: 0UT28ZZ Resection of Bilateral Ovaries, Via Natural or Artificial Opening Endoscopic (ICD-10-PCS; 2022-09-29)
PROC: 0UT78ZZ Resection of Bilateral Fallopian Tubes, Via Natural or Artificial Opening Endoscopic (ICD-10-PCS; 2022-09-29)
PROC: 0USG7ZZ Reposition Vagina, Via Natural or Artificial Opening (ICD-10-PCS; 2022-09-29)
PROC: 0TSD0ZZ Reposition Urethra, Open Approach (ICD-10-PCS; 2022-09-29)
PROC: 0UT98ZZ Resection of Uterus, Via Natural or Artificial Opening Endoscopic (ICD-10-PCS; principal; 2022-09-29 10:30)
DX: N81.2 Incomplete uterovaginal prolapse (principal); N39.3 Stress incontinence (female) (male); N83.202 Unspecified ovarian cyst, left side
CPT/HCPCS: 58571; 57283; 57288; 85025; 81001; 80048; 36415 ×2; 86900; 88108; 86850; 85610; 86901; 88305 ×2; 85730; 87811; J2704; J2710; J2370; J2001; J2250; J3010; J1100; A4216 ×2; J7120 ×2; J2405; J0690